=== PATIENT | male | born 1930 | race Caucasian/White ===

== ENCOUNTER 2017-08-15 11:56 | Outpatient (CLI) | payer MEDICARE, BC ==
--- NOTE | 2017-08-15 14:15 | MRI ---
MRI CERVICAL SPINE NONCONTRAST: 08/15/2017 HISTORY: An 86-year-old male with cervicalgia and bilateral cervical radiculopathy. COMPARISON: None. FINDINGS: In the right anterolateral neck, deep to the right sternocleidomastoid muscle and abutting the justine lateral surface of the right internal and common carotid arteries and right internal jugular vein, th ere is a large, T2-hyperintense, well circumscribed mass, with no surrounding edema. It is heterogen eously minimally hyperintense relative to muscle on T1 WI. It measures approximately 7.5 x 5.5 x 3 c m. Vertebral body heights are maintained. There is reversal of cervical curvature. C1-C2: No central spinal canal stenosis. C2-C3: No high grade central canal stenosis or right neural foraminal stenosis. There is moderate l eft neural foraminal stenosis due to moderate left degenerative facet hypertrophy. There are mild ri ght degenerative facet changes. Disk space is maintained. C3-C4: Severe right degenerative facet changes with facet hypertrophy. There is also bone marrow ed maged of the right facet joint and edema in the surrounding soft tissues, indicating inflammation. The re is moderate degenerative facet disease in the contralateral left facet joint. There are bilateral facet joint effusions, right greater than left. Mild to moderate ligamentum flavum thickening. Sli ght grade 1 anterolisthesis of C3 on C4. Disk space maintained. Small bilateral uncinate process os teophytes. Severe central spinal canal stenosis with effacement of CSF signal and compression of the spinal cord in the anteroposterior dimension. Severe bilateral neural foraminal stenosis. C4-C5: Disk space maintained. Severe right degenerative facet disease causes a grade 1 anterolisthe sis of C4 on C5. The left facet joint is essentially normal. There is moderate central spinal canal stenosis. Very severe right neural foraminal stenosis. Severe left neural foraminal stenosis. C5-C6: Moderate disk space narrowing. Broad-based disk-osteophytic bar complex mildly indents the v entral surface of the spinal cord. Flattening of the spinal cord in the anteroposterior dimension. Mild ligamentum flavum thickening. Moderate to large bilateral uncinate process osteophytes. Severe bilateral neural foraminal stenosis. Mild right degenerative facet changes. Essentially normal lef t facet joint. Severe central spinal canal stenosis (less severe than at the C3-C4 level). C6-C7: Severe disk space narrowing. Broad-based disk-osteophytic bar complex indents the ventral moreno rface of the spinal cord. The spinal cord is flattened in the anteroposterior dimension. Severe na tral spinal canal stenosis. Large bilateral uncinate process osteophytes. Severe bilateral neural f oraminal stenosis. Bilateral facet joints are essentially normal. C7-T1: Thickened ligamentum flavum. Severe right degenerative facet changes. Moderate to severe le ft degenerative facet changes. Disk space maintained. Minimal anterior translation of C7 on T1. Mo derate central spinal canal stenosis. Moderate to severe right neural foraminal stenosis. Moderate l eft neural foraminal stenosis. IMPRESSION: 1. Cervical spondylosis with multilevel degenerative disk disease (worst at C5-C6 and C6-C7) and mul tilevel facet osteoarthrosis. 2. Very severe central spinal canal stenosis with chronic cord compression at C3-C4. 3. Severe central spinal canal stenosis at C5-C6 and C6-C7. 4. Multilevel severe bilateral neural foraminal stenosis. 5. Right C3-C4 facet arthritis with inflammation. 6. Large T2-hyperintense mass in the right neck, between the sternocleidomastoid muscle and the righ t carotid space. Uncertain whether this is solid or cystic. Recommend MRI soft tissue neck with and without contrast, or CT neck with contrast. POS: [facility]
--- NOTE | 2017-08-15 14:52 | MRI ---
MRI LUMBAR SPINE WITHOUT CONTRAST: HISTORY: Low back pain, radiating down both legs x 1 year. COMPARISON: None. TECHNIQUE: MRI lumbar spine is performed without intravenous Gadolinium administration. Multisequential, multip lanar imaging is performed. FINDINGS: Symmetric signal intensity of the psoas muscles. T2 hyperintensities in the left renal pelvis, the left renal cortex, and right renal pelvis are nonsp ecific and may represent cysts. Evaluation is incomplete. T1 and T2 marrow signal hypointensity with associated T2 STIR hyperintensity at the L2-L3, L3-L4, and L4-L5 disk spaces, compatible with type I Modic change. There is type II Modic change as well at th e L2-L3 level with small Schmorl's nodes noted at multiple end plates. There is edema involving the right pedicle at L4 and L5 likely due to mechanical stress from degenerative change. There is 3.4 mm of retrolisthesis at L1 upon L2, 3.2 mm retrolisthesis of L2 upon L3, 3 mm retrolisth esis of L3 upon L4. Conus medullaris terminates at the superior aspect of L1. Moderate chronic compression fracture at T12 without significant retropulsion. T11-T12: No significant central canal stenosis. Neural foramina are patent bilaterally. T12-L1: T12 vertebral body with mild retropulsion. No significant central canal stenosis. T12-L1: Desiccation with mild loss of disk space height. No significant posterior disk abnormality. No significant central canal stenosis. Neural foramen are patent. L1-L2: Desiccation with mild loss of disk space height. Generalized disk bulge, minimal ligamentum flavum thickening, and facet hypertrophy result in mild central canal stenosis. There is bilateral f acet hypertrophy. There is mild to moderate bilateral foraminal narrowing. L2-L3: Desiccation with severe loss of disk space height. There is a broad-based disk bulge, ligame ntum flavum thickening, and facet hypertrophy with moderate stenosis of the central spinal canal. M oderate right and moderate to severe neural foraminal narrowing. L3-L4: Desiccation with mild loss of disk space height. Generalized disk bulge, ligamentum flavum t hickening, and facet hypertrophy result in moderate central canal stenosis. Severe bilateral foramin al narrowing. L4-L5: Desiccation with mild loss of disk space height. There is a generalized disk bulge with a le ft paracentral disk protrusion. There is severe central canal stenosis. There is bilateral facet hy pertrophy. Moderate to severe right and moderate left foraminal narrowing. L5-S1: Adequate disk hydration. No significant central canal stenosis. Foramen are patent. IMPRESSION: 1. Degenerative changes of the lumbar spine as above. Varying degrees of central canal stenosis and foraminal narrowing as above. 2. There is severe central canal stenosis at L4-L5 and moderate to severe central canal stenosis at L3-L4. POS: [facility]
== END 2017-08-15 11:57 | disposition home or self-care (01) ==
LOC: SCSMRI 11:56
PROVIDERS: ATTEND Anesthesiology Pain Medicine
DX: M47.816 Spondylosis without myelopathy or radiculopathy, lumbar region (principal); M48.061 Spinal stenosis, lumbar region without neurogenic claudication; M47.892 Other spondylosis, cervical region; M48.02 Spinal stenosis, cervical region; M99.81 Other biomechanical lesions of cervical region; R22.1 Localized swelling, mass and lump, neck
CPT/HCPCS: 72141; 72148

== ENCOUNTER 2017-09-10 08:02 | Outpatient (CLI) | payer MEDICARE ==
[2017-09-10 08:57] LABS: Estimated GFR-MDRD - POC Greater than 90
--- NOTE | 2017-09-10 14:02 | MRI ---
MRI NECK WITH AND WITHOUT CONTRAST: Date: 09/10/17 HISTORY: 86-year-old male with right anterior neck mass found on noncontrast MRI of the cervical spine of 06/30. TECHNIQUE: Multiplanar, multisequence MRI of the neck soft tissues performed pre and post IV injection of 14 mL MultiHance Gadolinium based contrast agent. FINDINGS: Again demonstrated is the approximately 5.5 x 7.5 x 3 cm well-circumscribed mass deep to the right st ernocleidomastoid muscle, and abutting the anterolateral surface of the right internal and common car otid arteries (which are mildly medially displaced by the mass), and right internal jugular vein. The re is no surrounding edema. It is hyperintense, isointense to CSF, on standard T2 WI. It has intermed iate signal intensity, isointense to brain parenchyma and moderately hyperintense relative to muscle, on noncontrast T1 WI. No definite enhancement is appreciated. It abuts the lateral margin of the rig ht lobe of the thyroid gland, but probably does not arise from the thyroid gland. No significant cerv ical lymphadenopathy is identified. No gross pathology is identified involving the posterior cervical , parapharyngeal, parotid, submandibular, commercial account officer, or retropharyngeal, spaces. The mass has an ant erior superior process/component that protrudes slightly anterior to the anterior edge of the right s ternocleidomastoid muscle, abutting the right side of the strap muscles, and abutting the right side of the thyroid cartilage. This anterior superior process measures approximately 2 x 2 cm. IMPRESSION: 1. Large right anterolateral neck mass, just deep to the right sternocleidomastoid muscle, is not a simple cyst. It apparently has little or no enhancement. It could be a low grade solid neoplasm or a cyst with proteinaceous contents. 2. Recommend otolaryngology consultation. CT with contrast may or may not provide additional useful information. Etiology is still uncertain. POS: [facility]
== END 2017-09-10 08:03 | disposition home or self-care (01) ==
LOC: SCSMRI 08:02
PROVIDERS: ATTEND Anesthesiology Pain Medicine
DX: R22.0 Localized swelling, mass and lump, head (principal)
CPT/HCPCS: 70543; 82565

== ENCOUNTER 2017-12-03 14:46 | Emergency (ER) | payer MEDICARE, BC | END 2017-12-03 16:55 | disposition home or self-care (01) | LOC: SCSER 14:46 | DX: K59.00 Constipation, unspecified (principal); E78.5 Hyperlipidemia, unspecified; E11.9 Type 2 diabetes mellitus without complications; I10 Essential (primary) hypertension; M19.90 Unspecified osteoarthritis, unspecified site; F41.9 Anxiety disorder, unspecified; F31.9 Bipolar disorder, unspecified; Z87.891 Personal history of nicotine dependence; Z79.82 Long term (current) use of aspirin; Z79.899 Other long term (current) drug therapy; Z79.84 Long term (current) use of oral hypoglycemic drugs | CPT/HCPCS: 99282 ==

== ENCOUNTER 2017-12-31 13:20 | Inpatient (IN) | payer MEDICARE, BC ==
[2017-12-31] MEDS ORDERED: Mineral Oil ENEMA ONE (13:52)
[2017-12-31 14:44] LABS: Band 1 % (5-11); Eosinophils 4 % (0-10); Hemoglobin 10.1 g/dL (14.0-18.0); Lymphocytes 22 % (21-51); MDiff Complete? YES; Mean Corpuscular HGB CONC 32.7 g/dL (32.0-36.0); Mean Corpuscular Volume 94.8 fL (78.0-98.0); Mean Platelet Volume 7.3 fL (7.4-10.4); Monocytes 11 % (0-10); Neutrophil 60 % (42-75); PLT Morphology Comment Appears Adequate; Platelet Count 252 thou/uL (130-400); RBC Distribution Width 11.7 % (11.5-14.5); Red Blood Cell (RBC) Count 3.25 mill/uL (4.70-6.10); White Blood Cell (WBC) Count 7.3 thou/uL (4.8-10.8)
[2017-12-31 14:45] LABS: ALT (SGPT) 20 U/L (8-55); AST (SGOT) 29 U/L (5-34); Albumin 3.8 g/dL (3.4-4.8); Alkaline Phosphatase 64 U/L (40-150); Anion Gap 11 mmol/L (10-20); BUN (Urea Nitrogen) 19 mg/dL (8.4-25.7); Bilirubin, Total 0.4 mg/dL (0.2-1.2); Calc. Creatinine Clearance 0 mL/min (70-130); Calcium 8.9 mg/dL (7.8-10.44); Carbon Dioxide 27 mmol/L (23-31); Chloride 102 mmol/L (98-107); Estimated GFR-MDRD 89; Globulin 2.8 g/dL (2.4-3.5); Glucose 145 mg/dL (83-110); Lipase 30 U/L (8-78); Potassium 4.6 mmol/L (3.5-5.1); Protein, Total 6.6 g/dL (5.8-8.1); Sodium 135 mmol/L (136-145)
[2017-12-31 16:15] LABS: Bilirubin Negative (Negative); Blood, Urine Trace (Negative); Clarity Slightly Cloudy (Clear); Glucose, Urine (Dipstick) Negative (Negative); Leukocyte Negative (Negative); Nitrite Negative (Negative); Protein, Urine (Dipstick) 30 mg/dL (Neg-Trace); Specific Gravity, Urine 1.015 (1.005-1.030); Urobilinogen 0.2 mg/dL (0.2-1.0)
[2017-12-31 16:17] LABS: Bacteria/HPF 2+ HPF (None Seen); Squamous Epithelial 0-3 HPF (0-3)
--- NOTE | 2017-12-31 16:57 | CT ---
ABDOMEN CT WITH CONTRAST: PELVIS CT WITH CONTRAST: HISTORY: Ongoing pain and constipation/bowel leakage x2 months. COMPARISON: None. FINDINGS: ABDOMEN: Dependent atelectatic changes. There is septal thickening. Nonspecific opacification in t he lung bases. The heart is enlarged. No significant pericardial fluid. There are pulmonary artery calcifications. The descending thoracic aorta and abdominal aorta demonstrate atherosclerosis. No periaortic fat stranding. CT evidence of cholelithiasis without evidence of cholecystitis. Grossly, the portal vein is patent. Grossly, the liver, spleen, pancreas, and adrenal glands are unremarkable. No gastrohepatic, retrocrural or periportal lymphadenopathy. No mesenteric mass, lymphadenopathy, free air, or free fluid. The gastric mucosa, the duodenum, and multiple normal caliber small bowel loops are noted. Fecalizat ion of the terminal ileum, likely due to an incompetent ileocecal valve. There is scattered fecal ma terial in a nondistended, nondilated colon. There is a marked amount of fecal material throughout th e colon, suggesting a component of constipation. There is fecal material in the distal sigmoid colon and rectum, with mild stranding of the presacral fat. Correlate for stercoral colitis. There is symmetric enhancement of the kidneys. Bilaterally, no obstructive uropathy. There is a solid enhancing mass in the left kidney, measuring 3.7 x 3.2 cm, worrisome for neoplasm un til proven otherwise. No obvious extension of the left renal vein. PELVIS: Enlarged prostate gland. The urinary bladder is unremarkable. No pelvic mass, lymphadenopa thy, free air, or free fluid. No lytic or blastic lesions in the osseous structures. Chronic compression fracture at T12. IMPRESSION: 1. Right renal neoplasm. 2. Probable stercoral colitis. The results of the study were discussed with Dr. Sands at 4:44 p.m. on 12/31/2017. CODE CR POS: [facility]
[2017-12-31 20:06] VITALS: BMI 22.7
[2017-12-31] MEDS ORDERED: Sodium Chloride 0.9% 1,000 ML IV SCH (20:15)
[2017-12-31] MEDS ORDERED: Acetaminophen 325 MG TAB PO PRN (21:17)
[2017-12-31] MEDS ORDERED: metroNIDAZOLE 500 MG in Premix Bag 1 BAG IVPB SCH (22:00)
[2017-12-31] MEDS ORDERED: traMADol HCl 50 MG TAB PO PRN (22:14)
--- NOTE | 2018-01-01 03:21 | HP ---
CHIEF COMPLAINT: Abdominal pain and tenesmus. HISTORY OF PRESENT ILLNESS: The patient is an 87-year-old male, who presented to the [facility] ER. The patient initially reports that he started having some problems with constipation about 2 months ago. Prior to that, he had never really had any problems with constipation before. He stated every once in a while, he would get a little loose stools, but never constipation. He has been having some tenesmus, but by the time he gets to the bathroom, he no longer has the urge to go. He had used some MiraLax, but was not improving and he ultimately presented to the Emergency Department on 12/03/2017 at [facility] ER. At that time, the patient reported he was using tramadol 50 mg t.i.d. for his chronic back pain. He was having some abdominal pain in the lower abdomen associated with his constipation. The patient had an enema, apparently had results in the Emergency Department. He was discharged and encouraged to use regular stool softeners, which he did. However, the patient' s symptoms have not really changed. He reports that he can occasionally strain and pass a very small hard ball of stool and then get a little bit of liquid out beyond that, but otherwise he is being worn down by the fact that he is having the urges so often with no results. It is causing him to not sleep at night. He does report that he continues to pass gas and occasionally will pass some liquid stool with that. It is to the point now that he is wearing a diaper as he cannot tell the difference. He does report that he continues to occasionally have the pain in the abdomen, which is radiating toward his back, which sometimes is difficult for him because of his chronic back pain to tell the difference between the two. REVIEW OF SYSTEMS: The patient has lost a total of 100 pounds. He and his have discrepancy in their accounting of how long it has taken him to lose that amount of weight. His believes he may have lost about 10 pounds in the last 3 months. He thinks it is more like 40, but she believes he has just lost track of time. He does report that his appetite has been down for the last 3-4 months. Otherwise, review of systems is negative. PAST MEDICAL HISTORY: Notable for diabetes, hypertension, hyperlipidemia, osteoarthritis, spinal stenosis, BPH, anxiety, depression, peripheral vascular disease. He also has a known renal mass. He had this discovered previously. He did go to [facility] for biopsy, which was benign. He has had continued followup there for a couple of years to monitor it. PAST SURGICAL HISTORY: TURP x2, tonsillectomy, left femoral artery stent with Dr. Olivia. SOCIAL HISTORY: The patient quit smoking in 1970. He has very occasional beer , but otherwise no alcohol. He is . FULL CODE. is the surrogate. FAMILY HISTORY: Father of an NE. Mother of complications of diabetes. He has 3 sisters and 3 daughters, all of whom have had some form of cancer. ALLERGIES: None. MEDICATIONS: Aspirin 81 mg every day; Crestor 10 mg daily; omega-3 fatty acids 1 every day; losartan 25 mg every day; metformin 500 daily; multivitamin 1 p.o. daily; vitamin C 1 p.o. daily; NAC 600 mg b.i.d.; and PreserVision AREDS 2 one p.o. b.i.d. PHYSICAL EXAMINATION: VITAL SIGNS: BP was 133/96, pulse 88, respirations 18, O2 saturation 98% on room air. GENERAL APPEARANCE: Age-appropriate male, slightly hard of hearing, very pleasant, but sometimes difficult to track in conversation. Although, he is appropriate and oriented. HEENT: PERRL. No OP lesions. NECK: Supple and symmetric. He does have a right carotid bruit, nothing on the left. HEART: Regular with a faint 2/6 murmur throughout the precordium. LUNGS: Clear to auscultation bilaterally with no wheezes or rales. ABDOMEN: Mildly diffusely tender, maybe slightly more on the right lower abdomen. Bowel sounds are present. EXTREMITIES: Warm and dry. He does have faint pulses. LABORATORY DATA: White count 7.3, hemoglobin 10.1, platelets 252. Sodium 135, potassium 4.6, chloride 102, CO2 of 27, BUN 19, creatinine 0.82, glucose 145, lactic acid 1, AST 29, ALT 20, albumin 3.8. Urine protein 30, trace blood, 4-6 white cells, 2+ bacteria. Stool for occult blood is positive. CT abdomen and pelvis reveals the known right renal mass and probable stercoral colitis. The patient has also known enlarged prostate and there is a significant fecal content throughout the colon and fecalization of the terminal ileum. IMPRESSION AND PLAN: 1. Stercoral colitis. It is unclear if this may be exacerbating the patient's tenesmus and constipation by physically occluding some passage of stool or if the chronic constipation in turn has caused some of this colitis. He will receive fluids, IV Levaquin, and Flagyl; and we will have GI see him in the morning. He may need an endoscopic disimpaction; however, there may be an attempt to try some more aggressive cleanout of the colon with some GoLYTELY and then colonoscopy performed. We will defer that to GI. 2. Renal mass, benign, followed at [facility]. 3. Constipation. The patient has substantial fecal content throughout the colon and fecalization in the ileum. Again, concerned that the colitis may be contributory. Once this gets cleaned out, we will need to work aggressively on identifying the cause and adapting his diet to it. 4. Diabetes mellitus, well controlled. We will do Accu-Cheks and sliding scale , but it sounds like it would not be necessary as his blood sugars here are reportedly very well controlled. 5. Hypertension. Continue with his usual home medications. 6. Hyperlipidemia. Continue his statin. 7. Heme-positive stools explained by the colitis. 8. History of peripheral vascular disease, stable. 9. Spinal stenosis, chronic. 10. Right carotid bruit. We will obtain a carotid ultrasound. LONA
--- NOTE | 2018-01-01 12:57 | ULT ---
BILATERAL CAROTID DUPLEX ULTRASOUND: HISTORY: Right carotid bruit. FINDINGS: Real-time imaging of the right and left carotid system shows calcified plaque formation bilaterally, both within the common carotid and in the origin of both internal carotid arteries. On the right side, the peak systolic velocities of the common carotid are 123 cm per second, with int ernal carotid velocities of 131 cm per second. External carotid velocities are 216 cm per second. On the left side, the peak systolic velocities of the common carotid are 90 cm per second, with inter nal carotid velocities of 124 cm per second and external carotid velocities of 152 cm per second. Vertebral flow is antegrade bilaterally. IMPRESSION: 1. Peak systolic velocity measurements would suggest 50% go 69% narrowing, although ratios and diast olic measurements would all suggest less than 50%. 2. No significant stenosis of the left internal carotid artery. 3. Incidental note is made of moderately elevated velocities of the right external carotid artery. POS: [facility]
[2018-01-01] MEDS ORDERED: traMADol HCl 50 MG TAB PO PRN (13:30)
[2018-01-01] MEDS ORDERED: Losartan 25 MG TAB PO SCH ×2 (13:30→14:15)
--- NOTE | 2018-01-01 15:45 | PDOC.PN ---
- Subjective Encounter Start Date: 01/01/18 Encounter Start Time: 09:00 Continues to have the tenesmus urges. Passing a small amount of liquid stool occasionally. - Objective Resuscitation Status: Resuscitation Status FULL:Full Resuscitation Vital Signs & Weight: Vital Signs (12 hours) Temp Pulse Resp BP Pulse Ox 01/01/18 10:58 99.1 F 75 20 178/74 H 98 01/01/18 07:27 98.7 F 73 20 164/71 H 96 Weight Admit Weight 149 lb 12.8 oz Weight 149 lb 12.8 oz I&O: 12/31/17 01/01/18 01/02/18 06:59 06:59 06:59 Intake Total 1019 349 Output Total 825 Balance 194 349 Result Diagrams: 12/31/17 14:20 12/31/17 14:20 Additional Labs: Accuchecks 01/01/18 12/31/17 11:02 20:29 POC Glucose 96 109 Phys Exam - Physical Examination Constitutional: NAD Respiratory: no wheezing, no rales, no rhonchi, clear to auscultation bilateral Cardiovascular: RRR, no significant murmur, no rub Gastrointestinal: soft, non-tender, no distention, positive bowel sounds Musculoskeletal: no edema Psychiatric: normal affect Dx/Plan (1) Stercoral ulcer of large intestine Code(s): K63.3 - ULCER OF INTESTINE Status: Acute (2) Constipation Code(s): K59.00 - CONSTIPATION, UNSPECIFIED Status: Acute (3) Chronic back pain Code(s): M54.9 - DORSALGIA, UNSPECIFIED; G89.29 - OTHER CHRONIC PAIN Status: Acute (4) Diabetes mellitus Code(s): E11.9 - TYPE 2 DIABETES MELLITUS WITHOUT COMPLICATIONS Status: Acute (5) Hypertension Code(s): I10 - ESSENTIAL (PRIMARY) HYPERTENSION Status: Acute (6) Spinal stenosis Code(s): M48.00 - SPINAL STENOSIS, SITE UNSPECIFIED Status: Acute - Plan * Had enema last night in ED with no results. Continuing abx. Await GI consult.
[2018-01-01] MEDS: Aspirin 81 mg Enteric Coated Tablet PO SCH (20:30)
--- NOTE | 2018-01-02 01:30 | CON ---
DATE OF CONSULTATION: 01/01/2018 REASON FOR CONSULTATION: Fecal impaction. HISTORY: Mr. Loyola is an 87-year-old male who was transferred from an Urgent Care Clinic to the [facility] ency room yesterday after attempted enema for bowel evacuation was unsuccessful. His history dated b ack 6 months ago when he noted increasing constipation after starting tramadol for his back pain from spinal stenosis. He had increasing frequent episode of constipation characterized as not having a b owel movement for several days at a time. He would try Milk of Magnesia, Colace, stool softener, and MiraLax without any provided regularity. He went to [facility] Emergency Room 2 months ago wit h a negative evaluation. Reportedly, he was seen by a nurse practitioner in the clinic and had a neg ative stool occult blood. Over the last 2-3 weeks, he had increasing severe rectal pressure, constan t urge to defecate without much result. He denies any severe localizing abdominal pain. There is no nausea or vomiting. His reports having had a 30-pound weight loss over the last 6 months. Of note, he had a negative colonoscopy except for benign polyps at [facility] in last year when he had a kidney biopsy done. CT performed in the emergency room yesterday showed stool throughout the colon in addition to rectal vault. There appears to be some mild stranding in the presacral fat. PAST MEDICAL HISTORY: 1. Hypertension. 2. Adult onset diabetes. 3. Hyperlipidemia. 4. Spinal stenosis with chronic back pain. 5. Peripheral vascular disease. 6. Benign renal mass with negative biopsy at [facility] last year. 7. History of colon polyps, previously had surveillance colonoscopy at [facility] with most rec ent colonoscopy at [facility] last year. 8. Status post left femoral artery stent. 9. Status post TURP. ALLERGIES: None. MEDICATIONS: Include Crestor, losartan, metformin, multivitamin, aspirin, MiraLax, and antacid. SOCIAL HISTORY: Patient is , lives with his , former smoker, no active tobacco or alcohol usage. FAMILY HISTORY: Negative for any known GI problem, liver disease, GI malignancy. REVIEW OF SYSTEMS: Ten-point review of systems did not show any other pertinent positive or negative . PHYSICAL EXAMINATION: VITAL SIGNS: Temperature is 99.2, blood pressure 169/70, pulse of 84. GENERAL: He is alert, conversant, does not appear in any distress. HEENT: Shows anicteric sclerae. NECK: Supple. CARDIOVASCULAR: Shows normal S1, S2. Regular rate and rhythm. CHEST: Shows breath sounds. ABDOMEN: Soft, no distention, no tenderness. He has active bowel sounds. I cannot palpate any stoo l filled colon as tendency is. EXTREMITIES: Shows no edema. RECTAL: Showed a definite hard rectal fecal impaction. LABORATORY DATA: WBC 7.3, hemoglobin 10.1, MCV of 94, platelet count of 252. Electrolytes within no rmal range, creatinine 0.82. LFTs are normal, lipase of 13. IMAGING DATA: CT scan showed stool throughout the colon with some fecalization to small bowel. Ther e appears to be large impacted stool in the rectal vault. ASSESSMENT: 1. A 5-6 month history of increasing constipation coincides with tramadol usage for his back pain fr om spinal stenosis. Currently, he definitely has a large fecal impaction causing constant urge to de fecate without much result. 2. He had reportedly negative colonoscopy at [facility] last year. RECOMMENDATIONS: 1. Patient will need a fecal disimpaction under sedation. I will schedule for tomorrow. 2. Future plan for daily stool softener and increasing dose of MiraLax usage once discharged.
[2018-01-02 04:55] LABS: Anion Gap 13 mmol/L (10-20); BUN (Urea Nitrogen) 12 mg/dL (8.4-25.7); Calc. Creatinine Clearance 72 mL/min (70-130); Calcium 8.8 mg/dL (7.8-10.44); Carbon Dioxide 23 mmol/L (23-31); Chloride 104 mmol/L (98-107); Estimated GFR-MDRD Greater than 90; Glucose 73 mg/dL (83-110); Potassium 3.9 mmol/L (3.5-5.1); Sodium 136 mmol/L (136-145)
[2018-01-02 05:31] LABS: Band 2 % (5-11); Hemoglobin 9.3 g/dL (14.0-18.0); Hypochromia SLIGHT = 6-15 cells (100X) (0-5/hpf); Lymphocytes 15 % (21-51); MDiff Complete? YES; Mean Corpuscular HGB CONC 33.3 g/dL (32.0-36.0); Mean Corpuscular Hemoglobin 32.4 pg (27.0-31.0); Mean Corpuscular Volume 97.1 fL (78.0-98.0); Mean Platelet Volume 7.7 fL (7.4-10.4); Monocytes 16 % (0-10); Neutrophil 67 % (42-75); PLT Morphology Comment Appears Adequate; Platelet Count 257 thou/uL (130-400); Polychromasia SLIGHT = 2-3 cells (100X) (0-2/hpf); RBC Distribution Width 12.1 % (11.5-14.5); Red Blood Cell (RBC) Count 2.89 mill/uL (4.70-6.10); White Blood Cell (WBC) Count 6.9 thou/uL (4.8-10.8)
[2018-01-02] MEDS: Losartan 25 MG TAB PO SCH ×2 (09:10→15:02)
[2018-01-02] MEDS ORDERED: PROPOFOL 200 MG/20 ML VIAL ONE (10:20)
[2018-01-02] MEDS ORDERED: Lidocaine 1% PF 5 ML VIAL ONE (10:20)
[2018-01-02] MEDS ORDERED: Promethazine HCl 25 MG/ML VIAL SLOW IVP PRN (11:28)
[2018-01-02] MEDS ORDERED: Promethazine HCl 25 MG/ML VIAL IM PRN (11:28)
[2018-01-02] MEDS ORDERED: Ondansetron HCl/PF 4 MG/2 ML Vial IVP PRN (11:28)
[2018-01-02] MEDS ORDERED: Fleet Enema 133 ML BOT FS ONE (12:00)
--- NOTE | 2018-01-02 12:24 | OP ---
DATE OF PROCEDURE: 01/02/2018 PROCEDURE: Digital fecal disimpaction with anesthesia. OPERATIVE NOTE: Informed consent was obtained. The patient was sedated with total intravenous anest hesia. Hard stool was disimpacted digitally from the rectum. He was given Fleets enemas. He was al lowed to wake up and push and additional stool was disimpacted. IMPRESSION: Large amount of hard stool disimpacted digitally. RECOMMENDATIONS: We will try course of GoLYTELY today.
[2018-01-02] MEDS ORDERED: GoLYTELY 4,000 ml Bottle PO SCH (13:00)
[2018-01-02] MEDS: Aspirin 81 mg Enteric Coated Tablet PO SCH (20:17)
--- NOTE | 2018-01-02 23:54 | PDOC.PN ---
- Subjective Encounter Start Date: 01/02/18 Encounter Start Time: 12:30 Still sleepy post procedure. - Objective Resuscitation Status: Resuscitation Status FULL:Full Resuscitation Vital Signs & Weight: Vital Signs (12 hours) Temp Pulse Resp BP BP Pulse Ox 01/02/18 20:00 100 01/02/18 19:42 98.0 F 62 16 148/66 H 100 01/02/18 16:00 98.1 F 89 16 159/77 H 98 01/02/18 13:00 98 F 76 16 140/87 100 Weight Admit Weight 149 lb 12.8 oz Weight 149 lb 12.8 oz I&O: 01/01/18 01/02/18 01/03/18 06:59 06:59 06:59 Intake Total 6305 621 4597 Output Total 825 600 Balance 905 290 6588 Result Diagrams: 01/02/18 04:08 01/02/18 04:08 Phys Exam - Physical Examination Constitutional: NAD Respiratory: no wheezing, no rales, no rhonchi Cardiovascular: RRR, no significant murmur Gastrointestinal: soft, non-tender Dx/Plan (1) Stercoral ulcer of large intestine Code(s): K63.3 - ULCER OF INTESTINE Status: Acute (2) Constipation Code(s): K59.00 - CONSTIPATION, UNSPECIFIED Status: Acute Comment: manually disimpacted by Dr. Hayes. Had enema and passed more (3) Chronic back pain Code(s): M54.9 - DORSALGIA, UNSPECIFIED; G89.29 - OTHER CHRONIC PAIN Status: Acute (4) Diabetes mellitus Code(s): E11.9 - TYPE 2 DIABETES MELLITUS WITHOUT COMPLICATIONS Status: Acute (5) Hypertension Code(s): I10 - ESSENTIAL (PRIMARY) HYPERTENSION Status: Acute (6) Spinal stenosis Code(s): M48.00 - SPINAL STENOSIS, SITE UNSPECIFIED Status: Acute - Plan * .
[2018-01-03] MEDS: Losartan 25 MG TAB PO SCH (08:15)
[2018-01-03 14:34] VITALS: BP 148/76; TEMP 98
--- NOTE | 2018-01-03 14:52 | PRG ---
DATE OF SERVICE: 01/03/2018 SUBJECTIVE: Mr. Loyola feels great. He is wanting to go home. OBJECTIVE: ABDOMEN: Soft, nontender, nondistended. Bowel sounds are present. IMPRESSION: Fecal impaction, status post digital disimpaction under anesthesia and this was followed by Gita cruz, and since then, he has been doing well clinically. RECOMMENDATIONS: 1. MiraLax 17 grams every day. He had been on this in the past and was doing well on it, but he jessica t taking it some time ago. He will continue the MiraLax 17 grams every day now. 2. Follow up as needed.
--- NOTE | 2018-01-03 15:00 | PDOC.PN ---
- Subjective Encounter Start Date: 01/03/18 Encounter Start Time: 07:45 Subjective: feels good, wants to go home -: had lot of BM's after drinking golytely -: abd feels soft with no pain or nausea - Objective Resuscitation Status: Resuscitation Status FULL:Full Resuscitation MAR Reviewed: Yes Vital Signs & Weight: Vital Signs (12 hours) Temp Pulse Resp BP BP Pulse Ox 01/03/18 11:25 98 F 60 18 148/76 H 98 01/03/18 08:14 98 01/03/18 07:03 98.0 F 60 16 158/54 H 98 Weight Admit Weight 149 lb 12.8 oz Weight 149 lb 12.8 oz I&O: 01/02/18 01/03/18 01/04/18 06:59 06:59 06:59 Intake Total 994 2460 480 Output Total 600 Balance 394 2460 480 Result Diagrams: 01/02/18 04:08 01/02/18 04:08 Phys Exam - Physical Examination HEENT: PERRLA, moist MMs Neck: no JVD, supple Respiratory: no wheezing, no rales Cardiovascular: RRR, no significant murmur Gastrointestinal: soft, non-tender, no distention, positive bowel sounds Musculoskeletal: no edema, pulses present Neurological: non-focal, moves all 4 limbs Psychiatric: normal affect, A&O x 3 Dx/Plan (1) Constipation Code(s): K59.00 - CONSTIPATION, UNSPECIFIED Status: Acute Comment: manually disimpacted by Dr. Hayes. Had Golytely after that and is cleaned out (2) Diabetes mellitus Code(s): E11.9 - TYPE 2 DIABETES MELLITUS WITHOUT COMPLICATIONS Status: Chronic Qualifiers: Diabetes mellitus type: type 2 Diabetes mellitus intermediate frame tender insulin use: without chcf use Diabetes mellitus complication status: with unspecified complications Qualified Code(s): E11.8 - Type 2 diabetes mellitus with unspecified complications (3) Hypertension Code(s): I10 - ESSENTIAL (PRIMARY) HYPERTENSION Status: Chronic Qualifiers: Hypertension type: essential hypertension Qualified Code(s): I10 - Essential (primary) hypertension (4) Spinal stenosis Code(s): M48.00 - SPINAL STENOSIS, SITE UNSPECIFIED Status: Chronic Qualifiers: Neurogenic claudication status: unspecified (5) Stercoral ulcer of large intestine Code(s): K63.3 - ULCER OF INTESTINE Status: Acute Comment: sec to constipation - Plan will be on bowel regimen, colace and miralax -: hemostable -: may dc home if ok with * .
[2018-01-03] MEDS ORDERED: Docusate 100 MG CAP PO SCH (21:00)
--- NOTE | 2018-01-03 23:56 | DIS ---
DATE OF ADMISSION: 12/31/2017 DATE OF DISCHARGE: 01/03/2018 DISCHARGE DISPOSITION: To home. PRIMARY DISCHARGE DIAGNOSIS: Severe constipation status post digital disimpaction under anesthesia. SECONDARY DISCHARGE DIAGNOSES: Stercoral ulcer of large intestine secondary to severe constipation; diabetes mellitus, type 2; hypertension; chronic spinal stenosis. 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 Had digital disimpactio n with anesthesia done on 01/02/[address] Regis Hayes. H&H are 9 and 28, platelet count 257. BU N 12, creatinine 0.7, albumin is 3.8. DISCHARGE MEDICATIONS: Aspirin 81 mg p.o. daily, Colace 100 mg twice daily, MiraLax 17 grams daily, Ultram p.r.n. for pain, Crestor 20 mg p.o. at bedtime., fish oil 1 capsule at bedtime, metformin 500 mg p.o. daily, losartan 25 mg daily, vitamin C 500 mg daily. ALLERGIES: No known drug allergies. INPATIENT CONSULTS: Dr. Regis Hayes for Gastroenterology. DISCHARGE PLAN: The patient to follow up with primary care physician in 1 week. BRIEF COURSE DURING HOSPITALIZATION: The patient initially came to ER on 12/31/2017 with complaints of abdominal pain and tenesmus. He has had a CT of the abdomen and pelvis done, which showed severe constipation with no acute pathology. Initially, the patient was tried on Fleet enema along with sto ol softeners, which did not seem to help. He has had consultation with Dr. Regis Hayes for Gastroe nterology. He was taken to OR for disimpaction of stool. Post digital disimpaction, the patient was given 4 liters of GoLYTELY and he finally cleared out all his impacted stool. He is ambulating and eating well prior to discharge. The patient has been placed on a bowel regimen and has been advised to continue the same. Please see a [id number] documentation on [email or web address] for the day of discharge.
[2018-01-04] MEDS ORDERED: Polyethylene Glycol 3350 17 GM Packet PO SCH (09:00)
== END 2018-01-03 14:28 | disposition home or self-care (01) | DRG 395 ==
LOC: SCSER 13:20 → 2SW 17:08 → OBSVTOIN 01-01 10:05 → T4-A 01-01 20:25
PROVIDERS: ADMIT Internal Medicine; ATTEND Internal Medicine
PROC: 0DCP7ZZ Extirpation of Matter from Rectum, Via Natural or Artificial Opening (ICD-10-PCS; principal; 2018-01-02)
DX: K63.3 Ulcer of intestine (principal); K56.41 Fecal impaction; K52.89 Other specified noninfective gastroenteritis and colitis; G89.29 Other chronic pain; I10 Essential (primary) hypertension; R19.00 Intra-abdominal and pelvic swelling, mass and lump, unspecified site; E78.5 Hyperlipidemia, unspecified; M19.90 Unspecified osteoarthritis, unspecified site; E11.51 Type 2 diabetes mellitus with diabetic peripheral angiopathy without gangrene; M48.00 Spinal stenosis, site unspecified; F41.8 Other specified anxiety disorders; Z87.891 Personal history of nicotine dependence; Z95.820 Peripheral vascular angioplasty status with implants and grafts; Z79.891 Long term (current) use of opiate analgesic; Z79.82 Long term (current) use of aspirin; Z79.84 Long term (current) use of oral hypoglycemic drugs
CPT/HCPCS: 36415; 36416; 74177; 80048; 80053; 81003; 81015; 82274; 83605; 83690; 85025; 93880; A4216; J1956